=== PATIENT | female | born 1945 | race Two or more races ===

== ENCOUNTER 2016-11-02 11:40 | Day surgery (SDC) | payer MEDICARE, MEDICAID ==
[~2016-11-02 11:40] MED LIST: CHONDR SULF 4%/HYALURONATE 3% 0.5 ML SYRINGE IO ONE; D5 1/2NS 500 ML IV SCH; EPINEPHRINE 0.5 MG in BALANCED SALT IRRIG SOLN NO.2 500 ML IO ONE; LIDOCAINE 4% (PRES FREE) 1 ML, BALANCED SALT IRRIG SOLN COMB2 3 ML, EPINEPHRINE 1.25 MG IO ONE; NEO/POLYMYX B SULF/DEXAMETH OP OINT 14 APPLIC/3.5 G TUBE OD ONE; PHENYLEPHRINE HCL 10% 100 GTTS/5 ML BOT SOLN.DROP OD PRN; PROPARACAINE HCL 0.5% 300 GTTS/BOT SOLN.DROP OD ONE
[2016-11-02] MEDS ORDERED: LIDOCAINE 1% (PRES FREE) 5 ML VIAL ONE (12:17)
[2016-11-02] MEDS ORDERED: IV START KIT ONE (12:18)
[2016-11-02] MEDS ORDERED: SODIUM CHLORIDE 0.9% 1,000 ML ONE (12:19)
[2016-11-02] MEDS: FLURBIPROFEN SODIUM 0.03% 50 GTTS/2.5 ML BOT SOLN.DROP OD SCH ×2 (12:25→12:30)
[2016-11-02] MEDS: PHENYLEPHRINE 2.5% OPHTH 40 GTTS/2 ML BOT SOLN.DROP OD SCH ×2 (12:25→12:30)
[2016-11-02] MEDS: CYCLOPENTOLATE HCL 1% 40 GTTS/2 ML BOT SOLN.DROP OD SCH ×2 (12:25→12:31)
[2016-11-02] MEDS ORDERED: MIDAZOLAM HCL 1 MG/ML 2ML VIAL ONE (12:54)
[2016-11-02] MEDS ORDERED: ACETAMINOPHEN 500 MG TABLET ONE (13:56)
[2016-11-02] MEDS ORDERED: ACETAMINOPHEN 500 MG TABLET PO ONE (13:58)
--- NOTE | 2016-11-03 09:28 | OP ---
Gunjan Rosa [id number] DATE OF SURGERY: 11/02/2016 PREOPERATIVE DIAGNOSIS: Cataract OD. POSTOPERATIVE DIAGNOSIS: Pseudophakia OD. PROCEDURE: Cataract extraction and intraocular lens implantation OD. SURGEON: Jhony Louie M.D. ANESTHESIA: Monitored anesthesia care. COMPLICATIONS: None. DESCRIPTION: After proper informed consent and brief history and physical performed patient brought to the operating room and placed in the supine position on the operating room table. Patient then prepped and draped in the usual sterile fashion for cataract surgery on the right eye. A lid speculum placed in the eyelid of the right eye. Keratome blade used to make a clear corneal incision. Non-preserved lidocaine injected into the anterior chamber. Viscoelastic then injected into the anterior chamber. Paracentesis made with a rose blade. A bent needle system used to begin capsulorrhexis which was completed with Utrata forceps. Balanced salt solution (BSS) and a cannula were used to hydrodissect and hydrodelineate the lens nucleus, and cortex. The lens nucleus was removed using the phacoemulsification hand piece. Lens cortex was removed using the irrigation and aspiration (IA) hand piece. Viscoelastic was injected into the capsular bag. Intraocular lens SN60WF, 21.0 diopter power was injected into the capsular bag and rotated into place. Viscoelastic was removed using the irrigation and aspiration (IA) hand piece. Balanced salt solution (BSS) and the cannula was used to hydrate the wound and reinflate the anterior chamber. The patient tolerated the procedure well without complication. JOB: [id number]
== END 2016-11-02 14:05 | disposition home or self-care (01) ==
LOC: SDC 11:40
PROVIDERS: ATTEND Ophthalmology
PROC: 08RJ3JZ Replacement of Right Lens with Synthetic Substitute, Percutaneous Approach (ICD-10-PCS; principal; 2016-11-02)
DX: H26.9 Unspecified cataract (principal); Z88.5 Allergy status to narcotic agent; Z88.8 Allergy status to other drugs, medicaments and biological substances; I10 Essential (primary) hypertension; E07.9 Disorder of thyroid, unspecified; M10.9 Gout, unspecified; Z98.42 Cataract extraction status, left eye; Z96.1 Presence of intraocular lens
CPT/HCPCS: 66984; A9270; J2250; J7030; J0171 ×2